=== PATIENT | male | born 1990 ===

== ENCOUNTER 2020-08-09 13:46 | Inpatient (IN) | payer BC ==
[2020-08-09] MEDS ORDERED: Ondansetron PF 4 MG/2 ML Vial ONE (14:44)
[2020-08-09 14:48] LABS: Analyzer IN Cardio ER; Base Excess -11.5 mEq/L (-2.0 to +3.0); Calcium, Ionized (venous) 1.16 mmol/L (1.16-1.32); Chloride (VBG) 98 mmol/L (98-106); Hemoglobin (Hb) 17.6 g/dL (13.2-17.3); Potassium (VBG) 3.46 mmol/L (3.70-5.30); Sodium 134.4 mmol/L (133-146); pH (venous) 7.27 (7.32-7.43)
[2020-08-09 14:49] LABS: Actual Bicarbonate (HCO3v) 14 mEq/L (22-28)
[2020-08-09 14:50] LABS: #Basophils 0.1 thou/uL (0.0-0.2); #Eosinphils 0.1 thou/uL (0.0-0.7); #Monocytes 0.7 thou/uL (0.11-0.59); #Neutrophils 3.2 thou/uL (1.40-6.50); %Eosinophils 1.1 % (0.0-10.0); %Lymphocytes 32.6 % (21.0-51.0); %Neutrophils 52.4 % (42.0-75.0); Hemoglobin 16.7 g/dL (14.0-18.0); Mean Corpuscular HGB CONC 33.7 g/dL (32.0-36.0); Mean Corpuscular Hemoglobin 29.2 pg (27.0-31.0); Mean Corpuscular Volume 86.5 fL (78.0-98.0); Mean Platelet Volume 12.2 fL (7.4-10.4); Platelet Count 151 thou/uL (130-400); RBC Distribution Width 12.3 % (11.5-14.5); Red Blood Cell (RBC) Count 5.72 mill/uL (4.70-6.10); White Blood Cell (WBC) Count 6.1 thou/uL (4.8-10.8)
[2020-08-09 14:51] LABS: Bilirubin Negative (Negative); Blood, Urine 1+ (Negative); Clarity Clear (Clear); Glucose, Urine (Dipstick) Greater than 1000 mg/dL (Negative); Ketone, Urine Greater than 150 mg/dL (Negative); Leukocyte Negative Leu/uL (Negative); Nitrite Negative (Negative); Protein, Urine (Dipstick) 300 mg/dL (Neg-Trace); RBC/HPF 0-3 HPF (0-3); Specific Gravity, Urine 1.035 (1.002-1.036); Squamous Epithelial 0-3 HPF (0-3); Urobilinogen 3 mg/dL (Less than 2); WBC/HPF 0-3 HPF (0-3)
[2020-08-09 15:02] LABS: ALT (SGPT) 63 U/L (8-55); AST (SGOT) 42 U/L (5-34); Albumin 4.9 g/dL (3.5-5.0); Alkaline Phosphatase 92 U/L (40-110); Anion Gap 21 mmol/L (10-20); BUN (Urea Nitrogen) 8 mg/dL (8.9-20.6); Bilirubin, Total 0.9 mg/dL (0.2-1.2); Calc. Creatinine Clearance 0 mL/min (70-130); Calcium 9.6 mg/dL (7.8-10.44); Carbon Dioxide 14 mmol/L (22-29); Chloride 101 mmol/L (98-107); Globulin 3.1 g/dL (2.4-3.5); Glucose 319 mg/dL (70-105); Potassium 3.6 mmol/L (3.5-5.1); Sodium 132 mmol/L (136-145)
[2020-08-09 15:04] LABS: Large Platelets SLIGHT; MDiff Complete? YES; Platelet Morphology Comment Appears Adequate; RBC Morphology Normal
[2020-08-09 15:08] LABS: Bacteria/HPF Rare-Few HPF (None Seen)
[2020-08-09] MEDS ORDERED: Potassium Chloride 20 MEQ TAB ONE (15:09)
[2020-08-09] MEDS ORDERED: INSULIN REGULAR IN 0.9 % NACL 100 UNIT/100 ML BAG ONE (15:43)
[2020-08-09] MEDS ORDERED: Pantoprazole 40 MG VIAL ONE (16:05)
[2020-08-09] MEDS ORDERED: Lidocaine Viscous Sol 2% 15 ml UD Cup ONE (16:05)
[2020-08-09] MEDS ORDERED: Mag-Al 1200 mg/1200 mg/30 ML UDCUP ONE (16:05)
[2020-08-09] MEDS ORDERED: Dextrose 5 %-0.45 % NaCl 1,000 ML IV PRN (16:06)
[2020-08-09] MEDS ORDERED: Sodium Chloride 0.9% 1,000 ML IV PRN ×4 (16:06)
[2020-08-09] MEDS ORDERED: Electrolyte Replacement Protocol 1 EACH IVPB ONE (16:06)
[2020-08-09] MEDS ORDERED: NS 0.9% w/ 20 MEQ KCL 1,000 ML IV PRN ×2 (16:06)
[2020-08-09] MEDS ORDERED: hydrALAZINE 20 MG/ML VIAL SLOW IVP PRN (16:08)
[2020-08-09] MEDS ORDERED: HUMULIN R 100 UNITS in Sodium Chloride 0.9% 100 ML IVPB SCH (16:15)
[2020-08-09] MEDS ORDERED: NS 0.9% w/ 20 MEQ KCL 0 ML ONE (17:09)
[2020-08-09] MEDS ORDERED: D5 1/2 NS w/20 mEq KCL 1,000 ML ONE (17:09)
[2020-08-09 17:31] LABS: SARS-CoV-2 NAA Rapid Test Not Detected (NotDetected)
[2020-08-09 17:33] LABS: Anion Gap 19 mmol/L (10-20); BUN (Urea Nitrogen) 7 mg/dL (8.9-20.6); Calc. Creatinine Clearance 0 mL/min (70-130); Carbon Dioxide 15 mmol/L (22-29); Chloride 106 mmol/L (98-107); Glucose 234 mg/dL (70-105); Potassium 3.2 mmol/L (3.5-5.1); Sodium 137 mmol/L (136-145)
[2020-08-09] MEDS ORDERED: Electrolyte Replacement Protocol FS PRN (17:45)
[2020-08-09 19:22] VITALS: BMI 35.6
[2020-08-09] MEDS: Acetaminophen 325 MG TAB PO PRN (19:27)
[2020-08-09] MEDS: Pantoprazole 40 MG VIAL IVP SCH (20:15)
[2020-08-09] MEDS: Senokot S 8.6-50 MG TAB PO SCH (20:17)
[2020-08-09 20:47] LABS: Anion Gap 17 mmol/L (10-20); BUN (Urea Nitrogen) 7 mg/dL (8.9-20.6); Calc. Creatinine Clearance 129 mL/min (70-130); Calcium 8.4 mg/dL (7.8-10.44); Carbon Dioxide 15 mmol/L (22-29); Chloride 107 mmol/L (98-107); Glucose 217 mg/dL (70-105); Potassium 3.4 mmol/L (3.5-5.1); Sodium 136 mmol/L (136-145)
[2020-08-09] MEDS: D5 1/2 NS w/20 mEq KCL 1,000 ML IV PRN (21:41)
[2020-08-10] MEDS: Acetaminophen 325 MG TAB PO PRN (00:12)
[2020-08-10 01:37] LABS: Anion Gap 12 mmol/L (10-20); BUN (Urea Nitrogen) 6 mg/dL (8.9-20.6); Calc. Creatinine Clearance 140 mL/min (70-130); Calcium 8.4 mg/dL (7.8-10.44); Carbon Dioxide 16 mmol/L (22-29); Chloride 107 mmol/L (98-107); Glucose 168 mg/dL (70-105); Sodium 132 mmol/L (136-145)
[2020-08-10] MEDS: D5 1/2 NS w/20 mEq KCL 1,000 ML IV PRN ×2 (01:41→05:54)
[2020-08-10] MEDS ORDERED: Potassium Chloride 20 MEQ TAB PO SCH ×2 (05:45→23:30)
[2020-08-10 06:39] LABS: Anion Gap 13 mmol/L (10-20); BUN (Urea Nitrogen) 5 mg/dL (8.9-20.6); Calc. Creatinine Clearance 151 mL/min (70-130); Calcium 8.6 mg/dL (7.8-10.44); Carbon Dioxide 16 mmol/L (22-29); Chloride 108 mmol/L (98-107); Glucose 162 mg/dL (70-105); Sodium 134 mmol/L (136-145)
[2020-08-10] MEDS: Pantoprazole 40 MG VIAL IVP SCH ×2 (09:04→20:57)
[2020-08-10] MEDS: Senokot S 8.6-50 MG TAB PO SCH ×2 (09:08→20:58)
[2020-08-10] MEDS ORDERED: Dextrose 50% Abboject 50 ML SYRINGE SLOW IVP PRN (12:35)
[2020-08-10] MEDS ORDERED: Dextrose 5% in Water 1,000 ML IV PRN (12:35)
[2020-08-10] MEDS: Lantus 1000 UNITS/10 ML VIAL SC SCH ×2 (14:16→21:02)
[2020-08-10] MEDS: HumaLOG 300 UNITS/3 ML VIAL SC PRN (21:03)
[2020-08-10] MEDS ORDERED: Sodium Chloride 0.9% 500 ML IV SCH (22:45)
[2020-08-10 23:08] LABS: Actual Bicarbonate (HCO3a) 13.6 mEq/L (22-28); Base Excess (BEa) -10.2 mEq/L (-2.0 to +3.0); Calcium, Ionized (arterial) 1.14 mmol/L (1.12-1.30); Carboxyhemoglobin (COHb) 0.4 gm% (0.0-3.0); Hemoglobin (Hb) 15.3 g/dL (14.0-18.0); Potassium - ABG Lab 2.75 mmol/L (3.70-5.30); pH, Arterial 7.34 (7.35-7.45)
[2020-08-10 23:21] LABS: CO2 Tension 25.9 mmHg (35.0-45.0)
[2020-08-10 23:22] LABS: ALV-art Gradient 117.065 mmHg (0-20); O2 Tension (PaO2), arterial 50.2 mmHg (80.0-100.0); Puncture Site LRA
[2020-08-10] MEDS ORDERED: Magnesium 2 GM/50 ML 2 GM in Premix Bag 1 BAG IVPB SCH (23:30)
[2020-08-10 23:32] LABS: Hemoglobin 15.3 g/dL (14.0-18.0); Mean Corpuscular Hemoglobin 30.1 pg (27.0-31.0); Mean Corpuscular Volume 86.1 fL (78.0-98.0); Platelet Count 84 thou/uL (130-400); RBC Distribution Width 12.2 % (11.5-14.5); Red Blood Cell (RBC) Count 5.06 mill/uL (4.70-6.10)
[2020-08-10 23:37] LABS: ALT (SGPT) 283 U/L (8-55); AST (SGOT) 258 U/L (5-34); Albumin 4.1 g/dL (3.5-5.0); Alkaline Phosphatase 88 U/L (40-110); Anion Gap 18 mmol/L (10-20); BUN (Urea Nitrogen) 4 mg/dL (8.9-20.6); Calc. Creatinine Clearance 117 mL/min (70-130); Calcium 8.4 mg/dL (7.8-10.44); Carbon Dioxide 15 mmol/L (22-29); Chloride 108 mmol/L (98-107); Globulin 2.2 g/dL (2.4-3.5); Glucose 292 mg/dL (70-105); Protein, Total 6.3 g/dL (6.0-8.3); Sodium 138 mmol/L (136-145)
[2020-08-10 23:40] LABS: Troponin I 0.029 ng/mL (< 0.028)
[2020-08-10] MEDS ORDERED: Heparin 10,000 UNITS/ 10 ML VIAL SLOW IVP SCH (23:45)
[2020-08-10 23:47] LABS: Eosinophils 7 % (0-10); Lymphocytes 76 % (21-51); MDiff Complete? YES; Mean Platelet Volume 12.3 fL (7.4-10.4); Monocytes 2 % (0-10); Neutrophil 14 % (42-75); Platelet Morphology Comment Appears Decreased; Reactive Lymphocytes 1 % (0-10)
[2020-08-10] MEDS ORDERED: Potassium Chloride 40 MEQ in Sodium Chloride 0.9% 250 ML 250 ML IVPB SCH (23:59)
[2020-08-11] MEDS ORDERED: Heparin 25,000 units/D5W 500 ML IVPB SCH (00:15)
[2020-08-11 01:35] LABS: #Basophils 0.1 thou/uL (0.0-0.2); #Eosinphils 0.1 thou/uL (0.0-0.7); #Lymphocytes 2.2 thou/uL (1.20-3.40); #Monocytes 1.2 thou/uL (0.11-0.59); #Neutrophils 5.2 thou/uL (1.40-6.50); %Basophils 0.9 % (0.0-1.0); %Eosinophils 0.6 % (0.0-10.0); %Lymphocytes 25.7 % (21.0-51.0); %Monocytes 13.7 % (0.0-10.0); %Neutrophils 59.1 % (42.0-75.0); Hemoglobin 14.3 g/dL (14.0-18.0); Mean Corpuscular HGB CONC 33.6 g/dL (32.0-36.0); Mean Corpuscular Hemoglobin 29.4 pg (27.0-31.0); Mean Corpuscular Volume 87.2 fL (78.0-98.0); Platelet Count 64 thou/uL (130-400); RBC Distribution Width 12.3 % (11.5-14.5); Red Blood Cell (RBC) Count 4.86 mill/uL (4.70-6.10); White Blood Cell (WBC) Count 8.7 thou/uL (4.8-10.8)
[2020-08-11 01:57] LABS: INR-International Normal Ratio 1.2
[2020-08-11] MEDS: Sodium Chloride 0.9% 1,000 ML IV SCH ×3 (02:00→21:55)
[2020-08-11 03:50] LABS: Hemoglobin 14.5 g/dL (14.0-18.0); Mean Corpuscular HGB CONC 35.2 g/dL (32.0-36.0); Mean Corpuscular Hemoglobin 30.7 pg (27.0-31.0); Mean Corpuscular Volume 87.1 fL (78.0-98.0); Mean Platelet Volume 12.4 fL (7.4-10.4); Platelet Count 58 thou/uL (130-400); RBC Distribution Width 12.3 % (11.5-14.5); Red Blood Cell (RBC) Count 4.71 mill/uL (4.70-6.10); White Blood Cell (WBC) Count 8.7 thou/uL (4.8-10.8)
[2020-08-11 04:07] LABS: Anion Gap 21 mmol/L (10-20); BUN (Urea Nitrogen) 4 mg/dL (8.9-20.6); Calc. Creatinine Clearance 117 mL/min (70-130); Calcium 8.8 mg/dL (7.8-10.44); Carbon Dioxide 13 mmol/L (22-29); Cardiac Risk 6.3 (Less than 4.5); Chloride 103 mmol/L (98-107); Cholesterol 164 mg/dl (< 200 Desired); Glucose 414 mg/dL (70-105); HDL Cholesterol 26 mg/dL (>60 Neg Risk); LDL Cholesterol, Calculated 120 mg/dL; Potassium 3.6 mmol/L (3.5-5.1); Sodium 133 mmol/L (136-145); Triglycerides 91 mg/dL (Less than 150)
[2020-08-11 04:16] LABS: Lymphocytes 12 % (21-51); MDiff Complete? YES; Metamyelocyte 1 % (0-0); Monocytes 8 % (0-10); Neutrophil 76 % (42-75); Platelet Morphology Comment Appears Decreased; Reactive Lymphocytes 2 % (0-10)
[2020-08-11] MEDS: Acetaminophen 325 MG TAB PO PRN (06:20)
[2020-08-11] MEDS: HumaLOG 300 UNITS/3 ML VIAL SC PRN ×5 (06:26→20:20)
[2020-08-11] MEDS ORDERED: Morphine 2 MG/ML VIAL SLOW IVP SCH (07:00)
[2020-08-11 08:13] LABS: Troponin I 0.839 ng/mL (< 0.028)
[2020-08-11 08:27] LABS: PTT Greater than 250.0 sec (22.9-36.1)
[2020-08-11] MEDS ORDERED: Iopamidol-370 76% 500 ML 1 ML ONE (09:04)
[2020-08-11] MEDS: Senokot S 8.6-50 MG TAB PO SCH ×2 (09:50→20:19)
[2020-08-11] MEDS: Pantoprazole 40 MG VIAL IVP SCH ×2 (09:50→20:19)
[2020-08-11] MEDS: Lantus 1000 UNITS/10 ML VIAL SC SCH ×2 (09:51→20:19)
[2020-08-11 10:20] LABS: Platelet Count 46 thou/uL (130-400)
[2020-08-11 10:48] LABS: PTT Greater than 250.0 sec (22.9-36.1)
[2020-08-11] MEDS ORDERED: Dexamethasone 4 mg/ml Vial SLOW IVP SCH (11:30)
[2020-08-11 11:49] LABS: Unfractionated Heparin 1.26 IU/mL
[2020-08-11 11:56] LABS: Unfractionated Heparin 1.9 IU/mL
[2020-08-11] MEDS ORDERED: Morphine 2 MG/ML VIAL ONE (12:05)
[2020-08-11 12:42] LABS: Platelet Count 46 thou/uL (130-400)
[2020-08-11 13:09] LABS: INR-International Normal Ratio 1.3; Prothrombin Time 16.7 sec (12.0-14.7)
[2020-08-11 13:11] LABS: PTT 111.3 sec (22.9-36.1)
[2020-08-11 13:16] LABS: PTT 111.3 sec (22.9-36.1); Unfractionated Heparin 0.62 IU/mL
[2020-08-11 13:17] LABS: D-Dimer Test 6.53 *mcg/mL (0.27-0.43)
[2020-08-11 13:20] LABS: ALT (SGPT) 930 U/L (8-55); AST (SGOT) 904 U/L (5-34); Albumin 4.1 g/dL (3.5-5.0); Alkaline Phosphatase 116 U/L (40-110); Bilirubin, Direct 0.4 mg/dL (0.1-0.3); Bilirubin, Total 0.6 mg/dL (0.2-1.2); Protein, Total 6.2 g/dL (6.0-8.3)
[2020-08-11 17:25] LABS: Platelet Count 56 thou/uL (130-400)
[2020-08-11] MEDS: Morphine 2 MG/ML VIAL SLOW IVP PRN ×2 (17:32→21:53)
[2020-08-11 20:22] LABS: Platelet Count 56 thou/uL (130-400)
[2020-08-11 20:50] LABS: Amphetamine Not Detected (NotDetected); Barbiturates Screen Not Detected (NotDetected); Benzodiazepine Screen Not Detected (NotDetected); Cocaine Metabolite Screen Not Detected (NotDetected); Medtox Control Line Valid? VALID (VALID); Medtox Reader # READER 4; Methadone Not Detected (NotDetected); Methamphetamine Not Detected (NotDetected); Opiate Screen Detected (NotDetected); Oxycodone Screen Not Detected (NotDetected); Phencyclidine (PCP) Not Detected (NotDetected); THC/Cannabinoid Screen Not Detected (NotDetected); Tricyclic Screen Not Detected (NotDetected)
[2020-08-11] MEDS: Heparin 25,000 units/D5W 500 ML IV SCH (23:30)
[2020-08-12 02:39] LABS: #Lymphocytes 1.7 thou/uL (1.20-3.40); #Monocytes 0.9 thou/uL (0.11-0.59); #Neutrophils 5.3 thou/uL (1.40-6.50); %Basophils 0.2 % (0.0-1.0); %Eosinophils 0.3 % (0.0-10.0); %Lymphocytes 21.1 % (21.0-51.0); %Monocytes 11.2 % (0.0-10.0); %Neutrophils 67.3 % (42.0-75.0); Hemoglobin 12.5 g/dL (14.0-18.0); Mean Corpuscular HGB CONC 35.2 g/dL (32.0-36.0); Mean Corpuscular Hemoglobin 30.1 pg (27.0-31.0); Mean Corpuscular Volume 85.7 fL (78.0-98.0); Platelet Count 59 thou/uL (130-400); RBC Distribution Width 12.7 % (11.5-14.5); Red Blood Cell (RBC) Count 4.14 mill/uL (4.70-6.10); White Blood Cell (WBC) Count 7.9 thou/uL (4.8-10.8)
[2020-08-12 03:20] LABS: Anion Gap 16 mmol/L (10-20); BUN (Urea Nitrogen) 8 mg/dL (8.9-20.6); Calc. Creatinine Clearance 157 mL/min (70-130); Calcium 8.6 mg/dL (7.8-10.44); Carbon Dioxide 14 mmol/L (22-29); Chloride 108 mmol/L (98-107); Glucose 291 mg/dL (70-105); Potassium 4.1 mmol/L (3.5-5.1); Sodium 134 mmol/L (136-145)
[2020-08-12 03:22] LABS: ALT (SGPT) 3225 U/L (8-55); Albumin 3.8 g/dL (3.5-5.0); Alkaline Phosphatase 105 U/L (40-110); Bilirubin, Direct 0.4 mg/dL (0.1-0.3); Bilirubin, Total 0.6 mg/dL (0.2-1.2); Protein, Total 6.2 g/dL (6.0-8.3)
[2020-08-12] MEDS: HumaLOG 300 UNITS/3 ML VIAL SC PRN ×4 (03:50→20:22)
[2020-08-12 04:33] LABS: AST (SGOT) Greater than 3500 U/L (5-34)
[2020-08-12] MEDS: Sodium Chloride 0.9% 1,000 ML IV SCH ×2 (07:42→16:35)
[2020-08-12] MEDS: Senokot S 8.6-50 MG TAB PO SCH ×2 (07:43→20:23)
[2020-08-12] MEDS: Pantoprazole 40 MG VIAL IVP SCH ×2 (07:43→20:22)
[2020-08-12] MEDS: Lantus 1000 UNITS/10 ML VIAL SC SCH (07:44)
[2020-08-12] MEDS: Morphine 2 MG/ML VIAL SLOW IVP PRN (09:55)
[2020-08-12 11:26] LABS: Platelet Count 53 thou/uL (130-400)
[2020-08-12 16:22] LABS: Factor VIII Test 163.9 % ACTIVE (56-157)
[2020-08-12 16:39] LABS: Protein C Activity 77 % (78-152)
[2020-08-12] MEDS ORDERED: Lantus 1000 UNITS/10 ML VIAL SC SCH (21:00)
[2020-08-12] MEDS: Heparin 25,000 units/D5W 500 ML IV SCH (23:34)
[2020-08-13 00:37] LABS: Platelet Count 49 thou/uL (130-400)
[2020-08-13] MEDS: Morphine 2 MG/ML VIAL SLOW IVP PRN ×2 (01:38→11:54)
[2020-08-13] MEDS: HumaLOG 300 UNITS/3 ML VIAL SC PRN ×4 (05:37→20:53)
[2020-08-13 07:41] LABS: ALT (SGPT) 2344 U/L (8-55); AST (SGOT) 1495 U/L (5-34); Albumin 3.6 g/dL (3.5-5.0); Alkaline Phosphatase 102 U/L (40-110); Anion Gap 13 mmol/L (10-20); BUN (Urea Nitrogen) 7 mg/dL (8.9-20.6); Bilirubin, Direct 0.5 mg/dL (0.1-0.3); Bilirubin, Total 0.7 mg/dL (0.2-1.2); Calc. Creatinine Clearance 205 mL/min (70-130); Carbon Dioxide 24 mmol/L (22-29); Chloride 103 mmol/L (98-107); Glucose 247 mg/dL (70-105); Protein, Total 5.8 g/dL (6.0-8.3); Sodium 137 mmol/L (136-145)
[2020-08-13 07:44] LABS: Potassium 2.9 mmol/L (3.5-5.1)
[2020-08-13 07:49] LABS: Platelet Count 56 thou/uL (130-400)
[2020-08-13] MEDS ORDERED: Lantus 1000 UNITS/10 ML VIAL SC SCH (09:00)
[2020-08-13] MEDS: Pantoprazole 40 MG VIAL IVP SCH ×2 (09:33→20:51)
[2020-08-13] MEDS: Senokot S 8.6-50 MG TAB PO SCH ×2 (09:33→20:53)
[2020-08-13] MEDS: Potassium Chloride 20 MEQ TAB PO SCH ×4 (09:33→20:51)
[2020-08-13 12:30] LABS: Cardiolipin IgA Ab 2.5 APL-U/mL (<14 Negative); Cardiolipin IgM Ab 2.9 MPL-U/mL (<10 Negative); EliA APS New Method **** NEW METHOD ****
[2020-08-13 15:15] LABS: Heparin-Induced Ab (HITA) 0.057 OD (0.000-0.400)
[2020-08-13] MEDS: Lantus 1000 UNITS/10 ML VIAL SC SCH (20:52)
[2020-08-13] MEDS: Heparin 25,000 units/D5W 500 ML IV SCH (22:49)
[2020-08-14] MEDS: Morphine 2 MG/ML VIAL SLOW IVP PRN ×2 (00:10→17:03)
[2020-08-14 05:32] LABS: Hemoglobin 12.3 g/dL (14.0-18.0); Platelet Count 85 thou/uL (130-400)
[2020-08-14 05:39] LABS: INR-International Normal Ratio 1.2; Prothrombin Time 15.8 sec (12.0-14.7)
[2020-08-14 05:48] LABS: ALT (SGPT) 1945 U/L (8-55); AST (SGOT) 827 U/L (5-34); Albumin 3.4 g/dL (3.5-5.0); Alkaline Phosphatase 101 U/L (40-110); Anion Gap 12 mmol/L (10-20); BUN (Urea Nitrogen) 4 mg/dL (8.9-20.6); Bilirubin, Total 0.9 mg/dL (0.2-1.2); Calc. Creatinine Clearance 223 mL/min (70-130); Calcium 8.2 mg/dL (7.8-10.44); Carbon Dioxide 28 mmol/L (22-29); Chloride 104 mmol/L (98-107); Globulin 2.4 g/dL (2.4-3.5); Glucose 229 mg/dL (70-105); Potassium 3.6 mmol/L (3.5-5.1); Protein, Total 5.8 g/dL (6.0-8.3); Sodium 140 mmol/L (136-145)
[2020-08-14] MEDS: HumaLOG 300 UNITS/3 ML VIAL SC PRN ×4 (05:49→20:21)
[2020-08-14 06:09] LABS: HBCM Index 0.06 S/CO (0-0.79); Hep A IgM AB Non-Reactive (NonReactive); Hep A IgM S/CO 0.21 S/CO (0-0.79); Hep B Surf Ag Non-Reactive S/CO (NonReactive); Hep C IgG Ab Non-Reactive (NonReactive); Hep C Index 0.06 S/CO (0-0.79); Hepatitis B Core IgM Abs Non-Reactive (NonReactive)
[2020-08-14] MEDS: Ondansetron PF 4 MG/2 ML Vial IVP PRN (07:47)
[2020-08-14] MEDS ORDERED: Lantus 1000 UNITS/10 ML VIAL SC SCH (09:00)
[2020-08-14] MEDS: Pantoprazole 40 MG VIAL IVP SCH ×2 (09:34→20:23)
[2020-08-14] MEDS: Potassium Chloride 20 MEQ TAB PO SCH ×2 (09:35→20:22)
[2020-08-14] MEDS: Senokot S 8.6-50 MG TAB PO SCH ×2 (09:35→20:23)
[2020-08-14] MEDS: Heparin 25,000 units/D5W 500 ML IV SCH (15:50)
[2020-08-14] MEDS: Lantus 1000 UNITS/10 ML VIAL SC SCH (20:20)
[2020-08-15 03:58] LABS: ALT (SGPT) 1446 U/L (8-55); AST (SGOT) 404 U/L (5-34); Albumin 3.3 g/dL (3.5-5.0); Alkaline Phosphatase 106 U/L (40-110); Anion Gap 11 mmol/L (10-20); BUN (Urea Nitrogen) 4 mg/dL (8.9-20.6); Calc. Creatinine Clearance 214 mL/min (70-130); Calcium 8.2 mg/dL (7.8-10.44); Carbon Dioxide 27 mmol/L (22-29); Chloride 100 mmol/L (98-107); Globulin 2.6 g/dL (2.4-3.5); Glucose 226 mg/dL (70-105); Potassium 3.4 mmol/L (3.5-5.1); Protein, Total 5.9 g/dL (6.0-8.3); Sodium 135 mmol/L (136-145)
[2020-08-15] MEDS ORDERED: Potassium Chloride 40 MEQ in Sodium Chloride 0.9% 250 ML 250 ML IVPB SCH (06:30)
[2020-08-15] MEDS: Senokot S 8.6-50 MG TAB PO SCH ×2 (08:24→22:04)
[2020-08-15] MEDS: Ondansetron PF 4 MG/2 ML Vial IVP PRN (08:24)
[2020-08-15] MEDS: Potassium Chloride 20 MEQ TAB PO SCH ×2 (08:24→22:00)
[2020-08-15] MEDS: Pantoprazole 40 MG VIAL IVP SCH ×2 (08:24→22:01)
[2020-08-15] MEDS ORDERED: Lantus 1000 UNITS/10 ML VIAL SC SCH (09:00)
[2020-08-15] MEDS: Heparin 25,000 units/D5W 500 ML IV SCH (09:27)
[2020-08-15] MEDS ORDERED: Calcium Carbonate 500 MG ChewTAB PO PRN (10:10)
[2020-08-15] MEDS ORDERED: Cepastat Lozenges 1 LOZ PO PRN (10:10)
[2020-08-15] MEDS ORDERED: Metoclopramide HCl 10 MG/2 ML VIAL IVP PRN (10:10)
[2020-08-15] MEDS ORDERED: Bisacodyl 5 MG TAB PO PRN (10:10)
[2020-08-15] MEDS ORDERED: Sodium Chloride 0.65% Nasal 44 ML BOT EA NARE PRN (10:10)
[2020-08-15] MEDS ORDERED: Loperamide HCl 2 MG CAP PO PRN (10:10)
[2020-08-15] MEDS ORDERED: GUAIFENESIN SF SOLN 200 MG/10 ML UDCUP PO PRN (10:10)
[2020-08-15] MEDS ORDERED: Benzonatate 100 MG CAP PO PRN (10:10)
[2020-08-15] MEDS ORDERED: Melatonin 3 MG TAB PO PRN (10:11)
[2020-08-15] MEDS: Loratadine 10 MG TAB PO PRN (11:46)
[2020-08-15] MEDS: HumaLOG 300 UNITS/3 ML VIAL SC PRN ×2 (11:48→22:01)
[2020-08-15] MEDS: Lantus 1000 UNITS/10 ML VIAL SC SCH (22:01)
[2020-08-16] MEDS: Ondansetron PF 4 MG/2 ML Vial IVP PRN (03:32)
[2020-08-16 04:22] LABS: ALT (SGPT) 1035 U/L (8-55); AST (SGOT) 170 U/L (5-34); Albumin 3.3 g/dL (3.5-5.0); Alkaline Phosphatase 101 U/L (40-110); Anion Gap 15 mmol/L (10-20); BUN (Urea Nitrogen) 6 mg/dL (8.9-20.6); Bilirubin, Total 1.1 mg/dL (0.2-1.2); Calc. Creatinine Clearance 181 mL/min (70-130); Calcium 8.6 mg/dL (7.8-10.44); Carbon Dioxide 27 mmol/L (22-29); Chloride 99 mmol/L (98-107); Globulin 3.4 g/dL (2.4-3.5); Glucose 229 mg/dL (70-105); Protein, Total 6.7 g/dL (6.0-8.3); Sodium 137 mmol/L (136-145)
[2020-08-16] MEDS: Heparin 25,000 units/D5W 500 ML IV SCH ×2 (04:48→22:34)
[2020-08-16 05:01] LABS: Band 11 % (5-11); Eosinophils 1 % (0-10); Hemoglobin 12.7 g/dL (14.0-18.0); Lymphocytes 29 % (21-51); MDiff Complete? YES; Mean Corpuscular HGB CONC 33.4 g/dL (32.0-36.0); Mean Corpuscular Hemoglobin 29.6 pg (27.0-31.0); Mean Corpuscular Volume 88.6 fL (78.0-98.0); Mean Platelet Volume 10.6 fL (7.4-10.4); Monocytes 12 % (0-10); Neutrophil 47 % (42-75); Platelet Count 120 thou/uL (130-400); Platelet Morphology Comment Appears Decreased; RBC Distribution Width 12.9 % (11.5-14.5); Red Blood Cell (RBC) Count 4.28 mill/uL (4.70-6.10)
[2020-08-16] MEDS ORDERED: Acetaminophen 325 MG TAB PO PRN (05:09)
[2020-08-16] MEDS: HumaLOG 300 UNITS/3 ML VIAL SC PRN ×3 (06:42→21:53)
[2020-08-16] MEDS ORDERED: Erythromycin 200 MG/5 ML Oral Suspension PO PRN (09:30)
[2020-08-16] MEDS: Senokot S 8.6-50 MG TAB PO SCH ×2 (09:43→21:52)
[2020-08-16] MEDS: Loratadine 10 MG TAB PO PRN (09:43)
[2020-08-16] MEDS: Potassium Chloride 20 MEQ TAB PO SCH ×2 (09:43→21:52)
[2020-08-16] MEDS: Lantus 1000 UNITS/10 ML VIAL SC SCH ×2 (09:44→21:52)
[2020-08-16] MEDS: Pantoprazole 40 MG VIAL IVP SCH ×2 (09:44→21:49)
[2020-08-16] MEDS: Erythromycin 250 MG in Sodium Chloride 0.9% 250 ML 250 ML IVPB SCH ×2 (13:17→17:58)
[2020-08-17] MEDS: Erythromycin 250 MG in Sodium Chloride 0.9% 250 ML 250 ML IVPB SCH ×4 (00:18→18:39)
[2020-08-17] MEDS: HumaLOG 300 UNITS/3 ML VIAL SC PRN (05:40)
[2020-08-17] MEDS: Apixaban 5 MG TAB PO SCH ×2 (09:34→20:42)
[2020-08-17] MEDS: Pantoprazole 40 MG VIAL IVP SCH ×2 (09:34→20:42)
[2020-08-17] MEDS: Potassium Chloride 20 MEQ TAB PO SCH ×2 (09:34→20:42)
[2020-08-17] MEDS: Senokot S 8.6-50 MG TAB PO SCH ×2 (09:34→20:42)
[2020-08-17] MEDS: Lantus 1000 UNITS/10 ML VIAL SC SCH ×2 (09:41→20:41)
[2020-08-17 13:31] LABS: HEX PHOS LA Tube 1 44.2 SEC; HEX PHOS LA Tube 2 41.8 SEC; Hexagonal Phospholipid Neut 2.4 SEC (0-8.0)
[2020-08-17] MEDS: metFORMIN 500 MG TAB PO SCH (16:40)
[2020-08-17 17:13] LABS: Activated Protein C Resistance 2.6 ratio (.)
[2020-08-18] MEDS: Erythromycin 250 MG in Sodium Chloride 0.9% 250 ML 250 ML IVPB SCH ×2 (00:28→05:59)
[2020-08-18 03:49] LABS: ALT (SGPT) 452 U/L (8-55); AST (SGOT) 69 U/L (5-34); Albumin 3.1 g/dL (3.5-5.0); Alkaline Phosphatase 86 U/L (40-110); Anion Gap 12 mmol/L (10-20); BUN (Urea Nitrogen) 5 mg/dL (8.9-20.6); Bilirubin, Total 0.5 mg/dL (0.2-1.2); Calc. Creatinine Clearance 211 mL/min (70-130); Calcium 8.5 mg/dL (7.8-10.44); Carbon Dioxide 27 mmol/L (22-29); Chloride 103 mmol/L (98-107); Globulin 3.1 g/dL (2.4-3.5); Glucose 126 mg/dL (70-105); Potassium 3.7 mmol/L (3.5-5.1); Protein, Total 6.2 g/dL (6.0-8.3); Sodium 138 mmol/L (136-145)
[2020-08-18 05:06] LABS: Band 8 % (5-11); Eosinophils 3 % (0-10); Hemoglobin 11.8 g/dL (14.0-18.0); Lymphocytes 58 % (21-51); MDiff Complete? YES; Mean Corpuscular HGB CONC 33.8 g/dL (32.0-36.0); Mean Corpuscular Hemoglobin 29.9 pg (27.0-31.0); Mean Corpuscular Volume 88.5 fL (78.0-98.0); Mean Platelet Volume 10.3 fL (7.4-10.4); Monocytes 1 % (0-10); Neutrophil 30 % (42-75); Platelet Count 152 thou/uL (130-400); RBC Distribution Width 12.8 % (11.5-14.5); RBC Morphology Normal; Red Blood Cell (RBC) Count 3.95 mill/uL (4.70-6.10); White Blood Cell (WBC) Count 7.8 thou/uL (4.8-10.8)
[2020-08-18] MEDS: metFORMIN 500 MG TAB PO SCH (07:26)
[2020-08-18] MEDS: Pantoprazole 40 MG VIAL IVP SCH (07:26)
[2020-08-18] MEDS: Potassium Chloride 20 MEQ TAB PO SCH (07:26)
[2020-08-18] MEDS: Senokot S 8.6-50 MG TAB PO SCH (07:27)
[2020-08-18] MEDS: Apixaban 5 MG TAB PO SCH (07:27)
[2020-08-18] MEDS: Lantus 1000 UNITS/10 ML VIAL SC SCH (07:28)
[2020-08-18 07:39] VITALS: TEMP 97.8
[2020-08-18 10:46] VITALS: BP 152/105
== END 2020-08-18 12:18 | disposition home or self-care (01) | DRG 637 ==
LOC: ERS 13:46 → IMCU/EMU 15:25
PROVIDERS: ADMIT Family Medicine; ATTEND Internal Medicine
DX: E10.10 Type 1 diabetes mellitus with ketoacidosis without coma (principal); I26.99 Other pulmonary embolism without acute cor pulmonale; J96.01 Acute respiratory failure with hypoxia; K72.00 Acute and subacute hepatic failure without coma; K92.0 Hematemesis; N17.9 Acute kidney failure, unspecified; E87.1 Hypo-osmolality and hyponatremia; K56.7 Ileus, unspecified; G24.09 Other drug induced dystonia; R03.0 Elevated blood-pressure reading, without diagnosis of hypertension; K59.00 Constipation, unspecified; E86.0 Dehydration; E87.6 Hypokalemia; E66.9 Obesity, unspecified; K76.0 Fatty (change of) liver, not elsewhere classified; Z20.822 Contact with and (suspected) exposure to COVID-19; R74.8 Abnormal levels of other serum enzymes; D69.6 Thrombocytopenia, unspecified; T45.0X5A Adverse effect of antiallergic and antiemetic drugs, initial encounter; I95.9 Hypotension, unspecified; R79.89 Other specified abnormal findings of blood chemistry; R50.9 Fever, unspecified; Z83.3 Family history of diabetes mellitus; Z68.38 Body mass index [BMI] 38.0-38.9, adult
CPT/HCPCS: 0240U; 36415; 36416; 36600; 71045; 71275; 76705; 76770; 80048; 80053; 80061; 80074; 80076; 80306; 81003; 81015; 82010; 82805; 83090; 83735; 84443; 84484; 85014; 85018; 85025; 85049; 85240; 85300; 85303; 85305; 85307; 85379; 85384; 85520; 85598; 85610; 85730; 86147; 87040; 87149; 93005; 93010; 93306; 93970; 96365; 96375; C9113; J1100; J1364; J1644; J1815; J2270; J2405; J2765; J3475; J3480; J3490; J7050; Q9967